=== PATIENT | female | born 1990 | race African-American/Black ===

== ENCOUNTER 2021-01-01 12:12 | Emergency (ER) | payer OTHER ==
[~2021-01-01] VITALS: Ht 157.5 cm; Wt 56.0 kg
[2021-01-01 15:22] VITALS: BP 129/80
== END 2021-01-01 15:27 | disposition home or self-care (01) ==
LOC: ER 12:12
DX: O20.0 Threatened abortion (principal); Z3A.08 8 weeks gestation of pregnancy
CPT/HCPCS: 36415; 76830; 76856; 84702; 86850; 86900; 99284